=== PATIENT | male | born 1985 | race African-American/Black ===

== ENCOUNTER 2022-10-11 09:10 | Emergency (ER) | payer BC, OTHER ==
[~2022-10-11] VITALS: Ht 177.8 cm; Wt 92.0 kg
[~2022-10-11 09:10] MED LIST: CEPH500C2 PO; SULF-104 PO; TRAM50TA3 PO
[2022-10-11 09:15] VITALS: O2SAT 98
[2022-10-11] MEDS ORDERED: CEPH500T MT (09:42)
[2022-10-11 10:05] VITALS: BP 147/89; PULSE 97; RESP 20; TEMP 98.5
== END 2022-10-11 10:06 | disposition home or self-care (01) ==
LOC: ER 09:10
DX: L03.115 Cellulitis of right lower limb (principal)
CPT/HCPCS: 99283

== ENCOUNTER 2022-11-10 08:56 | Emergency (ER) | payer BC ==
[~2022-11-10] VITALS: Ht 177.8 cm; Wt 94.0 kg
[~2022-11-10 08:56] MED LIST changes: +CEPH500T MT; +CLOT15CR5 TP
[2022-11-10 09:10] VITALS: BP 162/100; PULSE 74; RESP 16; TEMP 98.4; O2SAT 98
[2022-11-10] MEDS ORDERED: KETO15CR2 TP (10:58)
== END 2022-11-10 11:11 | disposition home or self-care (01) ==
LOC: ER 08:56
DX: B35.3 Tinea pedis (principal)
CPT/HCPCS: 99281; 99283